=== PATIENT | male | born 1980 | race Caucasian/White ===

== ENCOUNTER 2022-09-10 16:06 | Emergency (ER) | payer MEDICAID ==
[~2022-09-10] VITALS: Ht 172.7 cm; Wt 103.0 kg
[2022-09-10 16:10] VITALS: BP 169/109
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
[2022-09-10] MEDS ORDERED: IBUP-2213 PO (16:41)
[2022-09-10] MEDS ORDERED: CEPH-588 PO (16:41)
[2022-09-10] MEDS ORDERED: METF-431 PO (16:41)
[2022-09-10] MEDS ORDERED: ACET-10509 PO (16:41)
--- NOTE | 2022-09-10 16:59 | NUR ---
PER DR BALLARD, OK TO DISCHARGE PT WITH HR 120S
--- NOTE | 2022-09-10 17:00 | NUR ---
Patient discharged with v/s stable. Written and verbal after care instructions ABOUT ERYSIPELAS given and explained. Patient alert, oriented and verbalized understanding of instructions. Ambulatory with steady gait. All questions addressed prior to discharge. ID band removed. Patient advised to follow up with PMD. Rx of TYLENOL, MOTRIN, METFORMIN AND KEFLEX given. Patient educated on indication of medication including possible reaction and side effects. Opportunity to ask questions provided and answered.
== END 2022-09-10 17:00 | disposition home or self-care (01) ==
LOC: MED 16:06
DX: L03.211 Cellulitis of face (principal); A46 Erysipelas; E11.9 Type 2 diabetes mellitus without complications; Z91.14 Patient's other noncompliance with medication regimen; Z79.899 Other long term (current) drug therapy; Z79.1 Long term (current) use of non-steroidal anti-inflammatories (NSAID); Z79.2 Long term (current) use of antibiotics
CPT/HCPCS: 99283

== ENCOUNTER 2022-09-13 08:12 | Emergency (ER) | payer MEDICAID ==
[~2022-09-13] VITALS: Ht 172.7 cm; Wt 97.5 kg
[~2022-09-13 08:12] MED LIST: ACET-10509 PO; CEPH-588 PO; IBUP-2213 PO; METF-431 PO
[2022-09-13 08:24] VITALS: BP 157/102
--- NOTE | 2022-09-13 08:48 | NUR ---
MD BALLARD AT BEDSIDE FOR EVALUATION
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
[2022-09-13] MEDS ORDERED: SULF-58 PO (09:19)
[2022-09-13] MEDS ORDERED: HYDROcodone/APAP 7.5/325 MG 1 TAB PO ONE (09:25)
[2022-09-13 10:13] VITALS: BP 155/102
--- NOTE | 2022-09-13 10:13 | NUR ---
MADE AWARE OF UPDATED VITALS - "OK TO D/C"
--- NOTE | 2022-09-13 10:17 | NUR ---
Patient discharged with v/s stable. Written and verbal after care for INCISION AND DRAINAGE CARE instructions given and explained. Patient alert, oriented and verbalized understanding of instructions. Ambulatory with steady gait. All questions addressed prior to discharge. ID band removed. Patient advised to follow up with PMD. Rx of BACTRIM given. Opportunity to ask questions provided and answered. -pt picked up by family member
--- NOTE | 2022-09-13 10:18 | NUR ---
The patient's care was reviewed and supervised by Saima Gaviria RN.
== END 2022-09-13 10:17 | disposition home or self-care (01) ==
LOC: MED 08:12
DX: L02.01 Cutaneous abscess of face (principal); R03.0 Elevated blood-pressure reading, without diagnosis of hypertension; E11.9 Type 2 diabetes mellitus without complications; Z79.4 Long term (current) use of insulin; Z79.899 Other long term (current) drug therapy
CPT/HCPCS: 87070; 99284

== ENCOUNTER 2022-09-16 09:32 | Emergency (ER) | payer MEDICAID ==
[~2022-09-16] VITALS: Ht 172.7 cm; Wt 103.4 kg
[~2022-09-16 09:32] MED LIST changes: +SULF-58 PO
[2022-09-16 09:45] VITALS: BP 152/95
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
--- NOTE | 2022-09-16 10:17 | NUR ---
Patient discharged with v/s stable. Written and verbal after care instructions given and explained. Patient verbalized understanding. Ambulatory with steady gait. All questions addressed prior to discharge. Advised to follow up with PMD.
== END 2022-09-16 10:17 | disposition home or self-care (01) ==
LOC: MED 09:32
DX: L02.01 Cutaneous abscess of face (principal); E11.9 Type 2 diabetes mellitus without complications; Z79.899 Other long term (current) drug therapy; Z79.2 Long term (current) use of antibiotics; Z79.1 Long term (current) use of non-steroidal anti-inflammatories (NSAID)
CPT/HCPCS: 99282